=== PATIENT | female | born 1940 | race Caucasian/White ===

== ENCOUNTER → 2017-07-22 | Outpatient (CLI) | payer MEDICARE, BC ==
--- NOTE | 2017-07-22 20:49 | RADIOLOGY REPORT PS360 ---
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 Left atrium is moderately enlarged, left ventricle is normal size, there is mild qualitative concentric left ventricular hypertrophy present, visually estimated ejection fraction 50% with no obvious regional wall motion abnormality. There is abnormal septal motion. 2. The right atrium and right ventricle are mildly enlarged, contractility of the right ventricle is normal, there is a pacemaker lead seen in the right ventricle. 3. There is mechanical prosthetic valve noted in the aortic position valve is well seated. 4. The mitral and tricuspid valve leaflets are minimally thickened. 5. The pulmonic valve is poorly visualized. 6. No significant pericardial effusion noted. DOPPLER INTERROGATION: 1. The aortic out flow velocity across the prosthetic valve is within normal range, there is no aortic outflow obstruction, there is trace aortic insufficiency. 2. The mitral inflow velocity within normal range, there is no mitral stenosis, there is moderate mitral regurgitation, diastolic parameters are inconclusive. 3. There is moderate tricuspid regurgitation noted, calculated right ventricular systolic pressure is 49 mmHg consistent with moderate bony hypertension, inferior vena cava is mildly dilated with normal inspiratory collapse. CONCLUSION: 1. Biatrial enlargement, normal left ventricular size, mild concentric left ventricular hypertrophy, visually estimated ejection fraction 50% with no obvious regional wall motion abnormality, diastolic parameters are inconclusive. 2. Mildly enlarged right ventricle with normal contractility. 3. Normal functioning mechanical prosthetic valve in the aortic position without significant aortic outflow obstruction, there is trace aortic insufficiency present. 4. Moderate mitral and moderate tricuspid regurgitation, calculated right ventricular systolic pressure is 49 mmHg consistent with moderate pulmonary hypertension, inferior vena cava is mildly dilated with normal inspiratory collapse. 5. No significant pericardial effusion noted.
== END ==
LOC: RT 09:33
DX: Z95.2 Presence of prosthetic heart valve (principal); Z95.0 Presence of cardiac pacemaker; Z79.01 Long term (current) use of anticoagulants; Z51.81 Encounter for therapeutic drug level monitoring; Z86.73 Personal history of transient ischemic attack (TIA), and cerebral infarction without residual deficits; E78.5 Hyperlipidemia, unspecified; I10 Essential (primary) hypertension; I27.20 Pulmonary hypertension, unspecified

== ENCOUNTER 2017-08-07 10:43 | Outpatient (CLI) | payer MEDICARE, BC | END 2017-08-07 17:02 | LOC: ACC 10:43 | DX: Z95.2 Presence of prosthetic heart valve (principal); Z79.01 Long term (current) use of anticoagulants; Z51.81 Encounter for therapeutic drug level monitoring | CPT/HCPCS: G0463 ==

== ENCOUNTER 2017-08-19 10:48 | Outpatient (CLI) | payer MEDICARE, BC | END 2017-08-19 15:19 | LOC: ACC 10:48 | DX: Z95.2 Presence of prosthetic heart valve (principal); Z79.01 Long term (current) use of anticoagulants; Z51.81 Encounter for therapeutic drug level monitoring | CPT/HCPCS: G0463 ==